=== PATIENT | female | born 1935 | race Caucasian/White ===

== ENCOUNTER 2018-11-13 07:10 | Inpatient (IN) ==
--- NOTE | 2018-11-13 07:18 | Emergency Department Note ---
Disposition Clinical Impression: Right sided weakness Disposition: Admitted As Inpatient Condition: Good Referrals: Reggie Alanis DO [Primary Care Provider] - Time of Disposition: 09:01 Neuro HPI - General Chief Complaint: ED Neuro Symptoms/Deficit Stated Complaint: stroke Time Seen by Provider: 11/13/18 07:11 Source: patient, family, EMS Mode of arrival: EMS Limitations: no limitations Nursing Notes Reviewed: Yes Vital Signs Reviewed: Yes - History of Present Illness HPI Narrative: Patient is an 83-year-old female who is presenting with acute neurological symptoms. Patient with known history of hypertension hyperlipidemia. She also has history of past SVT. Patient is currently on metoprolol. Per daughter who was in the room, patient called her at 625 this morning, while on the phone, patient then became dizzy and noted that she was having difficulty holding the phone her right hand and also thought as though her lites leg was weak. She did not note any slurring of speech at that time. Last known well was 625. When the daughter arrived at 6:30 at the patient's house, she quickly performed a fast examination, which showed no neurological deficit. Patient was able to raise both of her arms equally and symmetrically without note of facial droop or slurring of speech. Patient was not confused at that time. Dizziness had resolved. EMS was called. Upon EMS arrival, there is no neurological deficit seen. When patient arrived to the ER, she stated once again she was having right-sided weakness in the upper extremity as well as the right leg. She had no slurring of speech, she did not feel confused and there is no facial a symmetry. Patient currently takes 81 mg of aspirin. She denies history of CVA or similar symptoms in the past. Per her daughter she has been under a great deal of stress. No recent falls or trauma. She does have some nausea, without vomiting no fevers or chills. No vision changes. No abdominal pain, chest pain or shortness of breath. Per EMS glucose of arrival was 111. Glucose performed in the ER on arrival was 80. - Related Data Home Medications: Home Medications Medication Instructions Recorded Confirmed Aspirin [Lo-Dose Aspirin EC] 81 mg PO 11/13/18 Atorvastatin [Lipitor] 20 mg PO HS 11/13/18 11/13/18 Ca/D3/Mag Ox/Zinc/Deck Supervisor/Ramon/Bor 1 each PO DAILY 11/13/18 11/13/18 [Calcium 600+D3 Plus Caplet] Cholecalciferol (Vitamin D3) 400 unit PO DAILY 11/13/18 11/13/18 [Vitamin D] Flaxseed Oil/[place] 3,6,9 [Sv 1 each PO DAILY 11/13/18 11/13/18 Flaxseed Oil 1,300 mg Sftgl] Ibuprofen [Advil] 200 mg PO Q6H PRN 11/13/18 11/13/18 Loratadine [Claritin] 10 mg PO DAILY PRN 11/13/18 11/13/18 Metoprolol [Lopressor] 12.5 mg PO QAM 11/13/18 11/13/18 Metoprolol [Lopressor] 25 mg PO HS 11/13/18 11/13/18 Allergies/Adverse Reactions: Allergies Allergy/AdvReac Type Severity Reaction Status Date / Time No Known Allergies Allergy Verified 11/13/18 07:19 All systems ED: reviewed and negative except as stated. Review of Systems: As Per HPI Constitutional: Denies: fever, chills ENT ED: Denies: congestion Cardiovascular: Denies: chest pain, palpitations, syncope Respiratory: Denies: cough, dyspnea, wheezes, sputum production Gastrointestinal: Reports: nausea. Denies: abdominal pain, vomiting, diarrhea, hematemesis, melena, hematochezia Genitourinary: Denies: urgency, dysuria, frequency Musculoskeletal: Denies: back pain Integumentary: Denies: rash Neurological: Reports: weakness. Denies: headache, numbness, paresthesias, confusion Endocrine: Denies: fatigue Past Medical History - Past Medical History Attestation: Yes The following information was validated with the patient. Source: patient Physical Exam - General Limitations: no limitations General appearance: alert, in no apparent distress - Head Head exam: atraumatic, normocephalic, normal inspection - Eye Eye exam: Present: normal appearance, PERRL, EOMI - ENT ENT exam: normal exam, normal oropharynx, mucous membranes moist - Neck Neck exam: Present: normal inspection, full ROM, trachea midline - Chest Chest inspection: Present: normal inspection, symmetric chest wall rise - Cardiovascular Cardiovascular exam: Present: regular rate, normal rhythm, normal heart sounds - Abdominal Exam Abdominal exam: Present: soft, Non-Tender. Absent: tenderness, distention, guarding, rebound, rigidity - Extremities Exam Extremities exam: Present: normal inspection, full ROM. Absent: tenderness, pedal edema - Neurological Exam Neurological exam: Present: alert, oriented X3 - Expanded Neurological Exam Patient oriented to: Present: person, place, time Speech: Present: fluid speech Cranial nerves: EOM function (II, III, IV, ): Normal, facial sensation (V): Normal, facial palsy (VII): Normal, spinal accessory function (XI): Normal, tongue deviation (XII): Normal Cerebellar function: finger to nose: Normal Cerebellar function: Romberg normal Motor strength - LUE: 5/5 Motor strength - RUE: 5/5 Motor strength - LLE: 5/5 Motor strength - RLE: 5/5 Upper motor neuron exam: michele neglect: Absent bilaterally, pronator drift: Absent bilaterally Sensory exam upper extremity: light touch: Normal Sensory exam lower extremity: light touch: Normal Coma Scale Eye Opening: Spontaneous Coma Scale Motor Response: Obeys Commands Coma Scale Verbal Response: Oriented Coma Scale Total: 15 - Psychiatric Psychiatric exam: Present: normal affect, normal mood - Skin Skin exam: Present: warm, dry, intact, normal color Course Vital Signs Temperature 98.4 F 11/13/18 07:19 Pulse Rate 61 11/13/18 07:19 Respiratory Rate 16 11/13/18 07:19 Blood Pressure 218/84 11/13/18 07:19 O2 Sat by Pulse Oximetry 99 11/13/18 07:19 Temperature 98.4 F 11/13/18 07:19 Pulse Rate 58 11/13/18 09:05 Respiratory Rate 15 11/13/18 09:05 Blood Pressure 138/67 11/13/18 09:05 O2 Sat by Pulse Oximetry 98 11/13/18 09:05 Oxygen Delivery Oxygen Delivery Room Air Neuro Symptoms/Deficit - MDM Narrative Medical decision making narrative: Patient is an 83-year-old female brought in via EMS for acute neurological changes. Patient with known history of hyperlipidemia, hypertension and SVT in the past. Per EMS, less than well was 0625. There was note of acute right- sided weakness to the arm and leg at 0625 with difficulty holding up the phone and walking. EMSs NIH was 0 upon their arrival. Patient is alert and oriented 3 on her arrival to the ER, my attending got an NIH of 2 with right arm and right leg weakness. Stroke alert was called at 0707. The patient arrived back to the ER following CT scan at 0725, I reevaluated patient and she now has an NIH of 0. Patient currently states she feels back to baseline. I was called by [facility] at 7:[address] Polo stating that the CT of the head shows no acute infarct. [facility], was at bedside via telemedicine at 735, per his recommendation no TPA at this point. He does recommend to transfer to [facility] for observation as symptoms are waxing and waning, feels though it would be more appropriate to be admitted to [facility] as if symptoms become constant, she is at the location for thrombectomy. He also states that the patient does not want to go to [facility], the patient is also appropriate to stay here at [place] for observation overnight and if symptoms worsen or change, she may be transferred to [facility] at any time. CTA of the head and neck was performed which shows no acute intracranial or vascular abnormality. While here in the ER, patient has remained without significant worsening of symptoms. They have completely resolved at this point. Patient states she feels back to baseline. She has been given aspirin as well as started on a D5 normal saline maintenance drip as she is currently glucose of 76. On arrival, patient was hypertensive with a blood pressure of 216 systolic, initially was going to give labetalol 20 mg IV, however when the patient returned from CT her blood pressure was in the 170 systolic and heart rate was 58, we will hold off at this time. Patient's blood pressure has continued to trend down and she has remained stable, as patient is not a TPA candidate, we will hold off on the pressure management. I did have further discussion with the patient, CTA is negative, she would prefer to stay here in [place] for continuation and evaluation for admission. I did discuss with her that anytime if her symptoms were to change or worsen she is able to be transferred to [facility]. She will be admitted at this time. Hospitalist has been paged at [phone]. - Medical Records Medical records reviewed: Yes I reviewed the patient's medical records. - Lab Data Lab results reviewed: Yes I reviewed the patient's lab results. Result diagrams: 11/13/18 07:13 11/13/18 07:13 Lab Results 11/13/18 11/13/18 11/13/18 Range/Units 07:13 07:13 07:13 WBC 7.5 (4.3-11.1) K/mcL RBC 4.59 (3.82-4.97) M/mcL Hgb 13.0 (11.5-15.4) g/dL Hct 41.5 (35.3-44.9) % MCV 90.4 (83.0-100.0) fL MCH 28.3 (28.0-33.3) pg MCHC 31.3 L (31.6-35.5) g/dL RDW 13.7 (11.5-14.5) % Plt Count 209 (140-400) K/mcL MPV 10.9 (9.4-12.4) fL PT 11.1 (9.4-12.1) Seconds INR 1.0 APTT 29.7 (26.0-36.0) Seconds Sodium 145 (136-145) mEq/L Potassium 4.0 (3.5-5.1) mEq/L Chloride 108 H (98-107) mEq/L Carbon Dioxide 28 (23-29) mEq/L BUN 18 (8-23) mg/dL Creatinine 0.75 (0.60-1.20) mg/dL Est GFR ( Amer) > 60 (> 60) Est GFR (Non-Af Amer) > 60 (> 60) BUN/Creatinine Ratio 24 (6-26) Glucose 76 (70-105) mg/dL Calculated Osmolality 301 H (280-300) Calcium 9.2 (8.6-10.3) mg/dL Troponin I < 0.03 (< 0.04) ng/mL Urine Color (Yellow) Urine Clarity (Clear) Urine pH (5.0-8.0) pH Units Ur Specific [place] (1.010-1.025) Urine Protein (Neg-Trace) mg/dL Urine Glucose (UA) (Normal) mg/dL Urine Ketones (Negative) mg/dL Urine Blood (Negative) Urine Nitrite (Negative) Urine Bilirubin (Negative) Urine Urobilinogen (Normal) mg/dL Ur Leukocyte Esterase (Negative) Urine Microscopic RBC (0-3) per hpf Urine Microscopic WBC (0-3) per hpf Ur Squamous Epith Cells (None-Few) per lpf Urine Bacteria (None-Few) per hpf Hyaline Casts (None-Few) per lpf Ur Culture Indicated? (NO) 11/13/18 Range/Units 08:07 WBC (4.3-11.1) K/mcL RBC (3.82-4.97) M/mcL Hgb (11.5-15.4) g/dL Hct (35.3-44.9) % MCV (83.0-100.0) fL MCH (28.0-33.3) pg MCHC (31.6-35.5) g/dL RDW (11.5-14.5) % Plt Count (140-400) K/mcL MPV (9.4-12.4) fL PT (9.4-12.1) Seconds INR APTT (26.0-36.0) Seconds Sodium (136-145) mEq/L Potassium (3.5-5.1) mEq/L Chloride (98-107) mEq/L Carbon Dioxide (23-29) mEq/L BUN (8-23) mg/dL Creatinine (0.60-1.20) mg/dL Est GFR ( Amer) (> 60) Est GFR (Non-Af Amer) (> 60) BUN/Creatinine Ratio (6-26) Glucose (70-105) mg/dL Calculated Osmolality (280-300) Calcium (8.6-10.3) mg/dL Troponin I (< 0.04) ng/mL Urine Color Yellow (Yellow) Urine Clarity Clear (Clear) Urine pH 7.0 (5.0-8.0) pH Units Ur Specific [place] < 1.005 L (1.010-1.025) Urine Protein Negative (Neg-Trace) mg/dL Urine Glucose (UA) Normal (Normal) mg/dL Urine Ketones Negative (Negative) mg/dL Urine Blood Negative (Negative) Urine Nitrite Negative (Negative) Urine Bilirubin Negative (Negative) Urine Urobilinogen Normal (Normal) mg/dL Ur Leukocyte Esterase Trace H (Negative) Urine Microscopic RBC 0-3 (0-3) per hpf Urine Microscopic WBC 0-3 (0-3) per hpf Ur Squamous Epith Cells None Seen (None-Few) per lpf Urine Bacteria None Seen (None-Few) per hpf Hyaline Casts None Seen (None-Few) per lpf Ur Culture Indicated? YES A (NO) - Radiology Data Radiology results reviewed: Yes I reviewed the patient's radiology results. Head CT 11/13/18 07:11 IMPRESSION: No acute intracranial abnormality. D/ / 11/13/2018 07:34:16 Garrett Polo MD / jamila Interpreting Provider: Garrett Polo MD - EKG Data EKG attestation: Yes I reviewed and interpreted this EKG. EKG results narrative: EKG obtained at 725 with ventricular rate of 61, regular rhythm, borderline left axis deviation, no ST segment elevation, depression or T-wave changes. overall normal sinus rhythm EKG. When compared to old EKG performed here 07/04/2008, appears relatively unchanged. NIH Stroke Scale - Level of Consciousness LOC: Alert - LOC Questions LOC Questions: Answers both correctly - LOC Commands LOC Commands: Performs both correctly - Best Gaze Best Gaze: Normal - Visual Visual: No visual loss - Facial Palsy Facial Palsy: Normal - Motor Arms Motor Arm-Left: No drift for 10 seconds Motor Arm-Right: No drift for 10 seconds - Motor Legs Motor Leg-Left: No drift for 5 seconds Motor Leg-Right: No drift for 5 seconds - Limb Ataxia Limb Ataxia: Absent of affected limb too weak to perform exam - Sensory Sensory: Normal - Best Language Best Language: No aphasia - Dysarthria Dysarthria: Normal - Extinction and Inattention Extinction and Inattention: Normal (performed post Ct scan at 725) - NIHSS Total Score NIHSS Total Score: 0 TPA Checklist - LKW: 3-4.5 hrs Add. Warnings/Precautions Patient/family understanding: The patient/family members have been counseled and understood the risk, benefit, and alternatives of treatment. Attestation Statement - Attestation Attestation: I, Dieter Ochoa DO, examined this patient [id number] and my medical decision-making was reviewed with Dr. Mavis Nevarez , Resident Physician. I agree with the documented findings, disposition and treatment plan as described except to the extent set forth below. I personally supervised and was present for the gaytan/critical portions of the procedures completed by the resident documented below. Please see my progress notes for details.
[2018-11-13] MEDS ORDERED: *HR* Labetalol 20 MG/4 ML SYRINGE IVP ONE (07:20)
[2018-11-13] MEDS ORDERED: D5% in 0.9% NACL 1,000 ML IVC SCH (07:30)
[2018-11-13 07:36] LABS: Hematocrit 41.5 % (35.3-44.9); Mean Corpuscular HGB Conc 31.3 g/dL (31.6-35.5); Mean Corpuscular Hemoglobin 28.3 pg (28.0-33.3); Mean Corpuscular Volume 90.4 fL (83.0-100.0); Mean Platelet Volume 10.9 fL (9.4-12.4); Platelet Count 209 K/mcL (140-400); Red Blood Count 4.59 M/mcL (3.82-4.97); Red Cell Distribution Width 13.7 % (11.5-14.5); White Blood Count 7.5 K/mcL (4.3-11.1)
[2018-11-13 07:40] LABS: Prothrombin Time 11.1 Seconds (9.4-12.1)
[2018-11-13 07:43] LABS: Activated Partial Thrombo Time 29.7 Seconds (26.0-36.0)
--- NOTE | 2018-11-13 07:43 | Emergency Department Note ---
Disposition Clinical Impression: Right sided weakness Disposition: Admitted As Inpatient Condition: Fair Forms: ED Satisfaction Letter Time of Disposition: 09:21 General Adult HPI - General Chief complaint: ED Neuro Symptoms/Deficit Stated complaint: stroke Time Seen by Provider: 11/13/18 07:11 Source: patient, family, EMS Mode of arrival: EMS Limitations: no limitations - History of Present Illness Pain Scale: 0 - Related Data Home Medications Medication Instructions Recorded Confirmed Aspirin [Lo-Dose Aspirin EC] 81 mg PO DAILY 11/13/18 11/13/18 Atorvastatin [Lipitor] 20 mg PO HS 11/13/18 11/13/18 Ca/D3/Mag Ox/Zinc/Director Of Testing/Ramon/Bor 1 each PO DAILY 11/13/18 11/13/18 [Calcium 600+D3 Plus Caplet] Cholecalciferol (Vitamin D3) 400 unit PO DAILY 11/13/18 11/13/18 [Vitamin D] Flaxseed Oil/[place] 3,6,9 [Sv 1 each PO DAILY 11/13/18 11/13/18 Flaxseed Oil 1,300 mg Sftgl] Ibuprofen [Advil] 200 mg PO Q6H PRN 11/13/18 11/13/18 Loratadine [Claritin] 10 mg PO DAILY PRN 11/13/18 11/13/18 Metoprolol [Lopressor] 12.5 mg PO QAM 11/13/18 11/13/18 Metoprolol [Lopressor] 25 mg PO HS 11/13/18 11/13/18 Allergies Allergy/AdvReac Type Severity Reaction Status Date / Time No Known Allergies Allergy Verified 11/13/18 07:19 Past Medical History - Past Medical History Medical history: Reports: hyperlipidemia, SVT Psychiatric history: Reports: no psych history - Social History Smoking Status: Never smoker Alcohol use: Reports: none Drug use: Reports: none Physical Exam - General Limitations: no limitations General appearance: alert Course Vital Signs Temperature 98.4 F 11/13/18 07:19 Pulse Rate 61 11/13/18 07:19 Respiratory Rate 16 11/13/18 07:19 Blood Pressure 218/84 11/13/18 07:19 O2 Sat by Pulse Oximetry 99 11/13/18 07:19 Temperature 98.4 F 11/13/18 07:19 Pulse Rate 58 11/13/18 09:05 Respiratory Rate 15 11/13/18 09:05 Blood Pressure 138/67 11/13/18 09:05 O2 Sat by Pulse Oximetry 98 11/13/18 09:05 Oxygen Delivery Oxygen Delivery Room Air Medical Decision Making - Lab Data Result diagrams: 11/13/18 07:13 11/13/18 07:13 Lab Results 11/13/18 11/13/18 11/13/18 Range/Units 07:13 07:13 07:13 WBC 7.5 (4.3-11.1) K/mcL RBC 4.59 (3.82-4.97) M/mcL Hgb 13.0 (11.5-15.4) g/dL Hct 41.5 (35.3-44.9) % MCV 90.4 (83.0-100.0) fL MCH 28.3 (28.0-33.3) pg MCHC 31.3 L (31.6-35.5) g/dL RDW 13.7 (11.5-14.5) % Plt Count 209 (140-400) K/mcL MPV 10.9 (9.4-12.4) fL PT 11.1 (9.4-12.1) Seconds INR 1.0 APTT 29.7 (26.0-36.0) Seconds Sodium 145 (136-145) mEq/L Potassium 4.0 (3.5-5.1) mEq/L Chloride 108 H (98-107) mEq/L Carbon Dioxide 28 (23-29) mEq/L BUN 18 (8-23) mg/dL Creatinine 0.75 (0.60-1.20) mg/dL Est GFR ( Amer) > 60 (> 60) Est GFR (Non-Af Amer) > 60 (> 60) BUN/Creatinine Ratio 24 (6-26) Glucose 76 (70-105) mg/dL Calculated Osmolality 301 H (280-300) Calcium 9.2 (8.6-10.3) mg/dL Troponin I < 0.03 (< 0.04) ng/mL Urine Color (Yellow) Urine Clarity (Clear) Urine pH (5.0-8.0) pH Units Ur Specific [place] (1.010-1.025) Urine Protein (Neg-Trace) mg/dL Urine Glucose (UA) (Normal) mg/dL Urine Ketones (Negative) mg/dL Urine Blood (Negative) Urine Nitrite (Negative) Urine Bilirubin (Negative) Urine Urobilinogen (Normal) mg/dL Ur Leukocyte Esterase (Negative) Urine Microscopic RBC (0-3) per hpf Urine Microscopic WBC (0-3) per hpf Ur Squamous Epith Cells (None-Few) per lpf Urine Bacteria (None-Few) per hpf Hyaline Casts (None-Few) per lpf Ur Culture Indicated? (NO) 11/13/18 Range/Units 08:07 WBC (4.3-11.1) K/mcL RBC (3.82-4.97) M/mcL Hgb (11.5-15.4) g/dL Hct (35.3-44.9) % MCV (83.0-100.0) fL MCH (28.0-33.3) pg MCHC (31.6-35.5) g/dL RDW (11.5-14.5) % Plt Count (140-400) K/mcL MPV (9.4-12.4) fL PT (9.4-12.1) Seconds INR APTT (26.0-36.0) Seconds Sodium (136-145) mEq/L Potassium (3.5-5.1) mEq/L Chloride (98-107) mEq/L Carbon Dioxide (23-29) mEq/L BUN (8-23) mg/dL Creatinine (0.60-1.20) mg/dL Est GFR ( Amer) (> 60) Est GFR (Non-Af Amer) (> 60) BUN/Creatinine Ratio (6-26) Glucose (70-105) mg/dL Calculated Osmolality (280-300) Calcium (8.6-10.3) mg/dL Troponin I (< 0.04) ng/mL Urine Color Yellow (Yellow) Urine Clarity Clear (Clear) Urine pH 7.0 (5.0-8.0) pH Units Ur Specific [place] < 1.005 L (1.010-1.025) Urine Protein Negative (Neg-Trace) mg/dL Urine Glucose (UA) Normal (Normal) mg/dL Urine Ketones Negative (Negative) mg/dL Urine Blood Negative (Negative) Urine Nitrite Negative (Negative) Urine Bilirubin Negative (Negative) Urine Urobilinogen Normal (Normal) mg/dL Ur Leukocyte Esterase Trace H (Negative) Urine Microscopic RBC 0-3 (0-3) per hpf Urine Microscopic WBC 0-3 (0-3) per hpf Ur Squamous Epith Cells None Seen (None-Few) per lpf Urine Bacteria None Seen (None-Few) per hpf Hyaline Casts None Seen (None-Few) per lpf Ur Culture Indicated? YES A (NO) Critical Care Time Critical Care Time: Yes (60) Total Critical Care Time: 60 Attestation: Critical care performed: Time is exclusive of separately billable procedures. Time includes: direct patient care, patient reassessment, coordination of patient care, interpretation of data (laboratory data, radiology data, and respiratory data), review of patient's medical records, medical consultation and documentation of patient care. Procedures included in critical care time: Procedures excluded from critical care time: Attestation Statement - Attestation Attestation: I, Dieter Ochoa DO, examined this patient [id number] and my medical decision-making was reviewed with Dr. Mavis Nevarez , Resident Physician. I agree with the documented findings, disposition and treatment plan as described except to the extent set forth below. I personally supervised and was present for the gaytan/critical portions of the procedures completed by the resident documented below. Please see my progress notes for details. 83-year-old female presents emergency room for evaluation of difficulty with speech confusion and right-sided weakness. The daughter was talking to her on the phone this morning at 0625 hours. Acutely at that time she noticed that the mother was having difficulty with speech and she immediately went over to the house and called the squad during her drive. The patient was found to be acting appropriately on arrival there would had some right-sided weakness greater than the daughter. By the time the squad arrived the symptoms had resolved. Patient is transferred out to the emergency room with a negative evaluation and Accu-Chek 111. Her vital signs are stable. On arrival here the patient had reemergence of right-sided weakness and difficulty with ambulation issues going from the cot to the bed. Stroke alert was immediately called on her arrival at 0710 hours. Patient had difficulty with lifting the right arm up against gravity. Aside from that the patient clear lungs and stable vital signs. Her blood pressure was elevated so appropriate intervention has been ordered at this time. Immediate CT scan of the head was ordered. Disposition to be completed. Head is otherwise atraumatic. No visible signs of facial asymmetry. No extra ocular muscle entrapment noted on initial presentation. She speaking in full sentences. Daughter is at the bedside and does agree that she is acting appropriately but the weakness in the right upper and right lower extremity were physically visible on initial presentation. Disposition pending full workup and evaluation. See detailed documentation the physical exam, medical intervention, medical decision-making and disposition in the resident physician's note. EKG is reviewed by myself and documented in the resident physician's note. Proximal 60 minutes of critical care pad the patient's treatment course at this time 0735 The neurologist from [facility] Dr. Willingham evaluated the patient the bedside. CT imaging of the head was negative. The recommendation at that time is that she could have a waxing and waning stroke. CT angiography of the head and the neck ordered immediately at that point. They recommended transfer to their facility for further evaluation of the patient will accommodate. They also felt that the patient could be managed our facility if they were not requesting to be transferred. Disposition pending the CT angiography as well as family comfort. The remainder the labs of been reviewed and otherwise stable. It was canceled at this time 0900 CT angiography of the head and neck are unremarkable for acute vascular related significant lesions. No visible signs of thrombus at this time. Patient has been provided with an aspirin. Discussion was had with the patient about transfer versus admission here for symptomatic management. Patient and family are both comfortable being admitted at our facility. The hospitalist Dr. cooley has reviewed the case at length and is evaluating the patient the bedside here in the emergency department. No other recommendations or concerns are noted this point. I went back and reevaluated the patient and she has remained 100% asymptomatic at this time and her blood pressure is back down to normal range. The daughter and family are both there and they are comfortable this time.
[2018-11-13] MEDS ORDERED: Ondansetron 4 MG/2 ML VIAL IVP ONE (07:45)
[2018-11-13 07:50] LABS: BUN/Creatinine Ratio 24 (6-26); Blood Urea Nitrogen 18 mg/dL (8-23); Calcium 9.2 mg/dL (8.6-10.3); Carbon Dioxide 28 mEq/L (23-29); Chloride 108 mEq/L (98-107); Glucose 76 mg/dL (70-105); Osmolality,Calculated 301 (280-300); Sodium 145 mEq/L (136-145); eGFR For African Americans > 60 (> 60); eGFR For Non-African Americans > 60 (> 60)
[2018-11-13 07:51] LABS: Troponin I < 0.03 ng/mL (< 0.04)
[2018-11-13] MEDS ORDERED: Isovue-370 500 ML BOTTLE IVP ONE (07:54)
[2018-11-13] MEDS ORDERED: Aspirin 81 MG TAB.CHEW PO ONE (08:01)
[2018-11-13 08:25] LABS: Bilirubin,Urine Negative (Negative); Blood,Urine Negative (Negative); Clarity,Urine Clear (Clear); Color,Urine Yellow (Yellow); Glucose,Urine (UA) Normal (Normal); Ketones,Urine Negative (Negative); Leukocyte Esterase,Urine Trace (Negative); Nitrite,Urine Negative (Negative); Protein,Urine Negative (Neg-Trace); Specific Gravity,Urine < 1.005 (1.010-1.025); Urobilinogen,Urine Normal (Normal)
[2018-11-13 08:28] LABS: Bacteria,Urine None Seen per hpf (None-Few); Hyaline Casts,Urine None Seen per lpf (None-Few); RBC,Urine 0-3 per hpf (0-3); Squamous Epithelial Cell,Urine None Seen per lpf (None-Few); WBC,Urine 0-3 per hpf (0-3)
--- NOTE | 2018-11-13 09:43 | Internal Med History&Physical ---
Date of Encounter: 11/13/18 Time of Encounter: 09:34 Internal Medicine - H&P: HPI Chief complaint: stroke symptoms Admitted From: Emergency Dept Plans for Post Hospital Care: Home History of present illness: Ms. Haque is a 83 year old female with PMHx of HLD, osteoporosis, paroxysmal SVT. patient states she woke up this morning around 0625 with right arm and right leg weakness. she called her daughter, who arrived to the house shortly afterwards. By the time her daughter arrived to the house, her symptoms had resolved. She arrived to the ED at 7:07 and was evaluated by ED physician. At that hermes, she was unable to lift her right arm again. SHe had CT head and CTA head that was negative. Stroke alert was called in ED and patient was evaluated by [facility] neurologist via telemedicine. She was deemed to not be a TPA candidate. It could have a form of stroke with waxing and waning symptoms, and patient was recommended to go to [facility] in case she needed localized thrombolytics. However, patient decided she would rather stay here in [place]. she accepts the risks/benefits of staying here. she denies nausea, vomiting, diarrhea, fevers, chills, chest pain, shortness of breath, hematochezia, melena, hematuria. she denies slurred speech or facial drooping. Past Med Surg Social Fam HX - Past Medical History Medical history: hyperlipidemia, SVT Psychiatric history: no psych history - Social History Smoking Status: Never smoker Alcohol use: none Drug use: none Internal Medicine - H&P: Meds Aspirin [Lo-Dose Aspirin EC] 81 mg PO DAILY 11/13/18 [History] Atorvastatin [Lipitor] 20 mg PO HS 11/13/18 [History] Ca/D3/Mag Ox/Zinc/Software Licensing Specialist/Ramon/Bor [Calcium 600+D3 Plus Caplet] 1 each PO DAILY 11/13/18 [History] Cholecalciferol (Vitamin D3) [Vitamin D] 400 unit PO DAILY 11/13/18 [History] Flaxseed Oil/[place] 3,6,9 [Sv Flaxseed Oil 1,300 mg Sftgl] 1 each PO DAILY 11/13/18 [History] Ibuprofen [Advil] 200 mg PO Q6H PRN 11/13/18 [History] Loratadine [Claritin] 10 mg PO DAILY PRN 11/13/18 [History] Metoprolol [Lopressor] 12.5 mg PO QAM 11/13/18 [History] Metoprolol [Lopressor] 25 mg PO HS 11/13/18 [History] Allergy/AdvReac Type Severity Reaction Status Date / Time No Known Allergies Allergy Verified 11/13/18 07:19 All Systems PM: A 10-system review of systems was performed and is negative for pertinent findings except as documented above in the HPI. - Constitutional Constitutional: as per HPI - EENT Eyes: as per HPI Ears: as per HPI Nose, mouth and throat: as per HPI - Breasts Breasts: as per HPI - Cardiovascular Cardiovascular ROS IM: as per HPI - Respiratory Respiratory: as per HPI - Gastrointestinal Gastrointestinal: as per HPI - Genitourinary Genitourinary: as per HPI Menstruation: as per HPI - Musculoskeletal Musculoskeletal ROS IM: as per HPI - Integumentary Integumentary IM: as per HPI - Neurological Neurological ROS: as per HPI - Psychiatric Psychiatric: as per HPI - Endocrine Endocrine IM: as per HPI - Hematologic/Lymphatic Hematologic/Lymphatic: as per HPI - Allergic/Immunologic Allergic/Immunologic: as per HPI - Constitutional Vitals: Temp Pulse Resp BP Pulse Ox 98.4 F 58 15 138/67 98 11/13/18 07:19 11/13/18 09:05 11/13/18 09:05 11/13/18 09:05 11/13/18 09:05 General appearance: Present: A&O X 3, pleasant, no acute distress, answers questions appropriately Exam: alert and oriented x3, pleasant, no acute distress - Head Head exam: Present: atraumatic, normocephalic - ENT ENT exam: Present: mucous membranes moist - Neck Neck exam general surgery: Present: supple, trachea midline - Respiratory Respiratory exam: Present: CTAB. Absent: rhonchi, wheezes - Cardiovascular Cardiovascular exam: Present: RRR, +S1, +S2. Absent: systolic murmur - GI/Abdominal GI/Abdominal exam: Present: normal bowel sounds, soft. Absent: distended, tenderness - Extremities Exam Extremities exam: Present: normal inspection. Absent: cyanotic, tenderness - Neurological Exam Neurological exam: Present: alert, CN II-XII intact, oriented X3, no focal deficits, strengths equal and symetr throughout. Absent: motor sensory deficit, pronater drift, facial droop, speech deficit - Psychiatric Psychiatric exam: Present: normal affect, normal mood - Skin Skin exam: Present: dry, intact. Absent: cyanosis, diaphoretic, rash, urticaria, vesicles Internal Med - H&P Results - Labs CBC & Chem 7: 11/13/18 07:13 11/13/18 07:13 Labs: Short CBC 11/13/18 Range/Units 07:13 WBC 7.5 (4.3-11.1) K/mcL Hgb 13.0 (11.5-15.4) g/dL Hct 41.5 (35.3-44.9) % Plt Count 209 (140-400) K/mcL BMP 11/13/18 07:13 Sodium 145 Potassium 4.0 Chloride 108 H Carbon Dioxide 28 BUN 18 Creatinine 0.75 Glucose 76 Calcium 9.2 Cardiac Enzymes 11/13/18 Range/Units 07:13 Troponin I < 0.03 (< 0.04) ng/mL Urine 11/13/18 Range/Units 08:07 Urine Color Yellow (Yellow) Urine Clarity Clear (Clear) Urine pH 7.0 (5.0-8.0) pH Units Ur Specific [place] < 1.005 L (1.010-1.025) Urine Protein Negative (Neg-Trace) mg/dL Urine Glucose (UA) Normal (Normal) mg/dL - Impressions ITS Impressions Head CT 11/13/18 07:11 IMPRESSION: No acute intracranial abnormality. D/ / 11/13/2018 07:34:16 Garrett Polo MD / jamila Interpreting Provider: Garrett Polo MD Chest X-Ray 11/13/18 07:12 IMPRESSION: No evidence of acute cardiopulmonary disease. D/ / Salty Rodriguez MD / Salty Rodriguez MD Interpreting Provider: Salty Rodriguez MD Head CTA 11/13/18 07:54 IMPRESSION: 1. No major branch occlusion, significant stenosis or cerebral aneurysm identified. 2. No significant arterial stenosis identified within the neck. D/ / 11/13/2018 08:51:16 Josué Lawrence MD / Maria Del Carmen Okeefe Interpreting Provider: Josué Lawrence MD Neck CTA 11/13/18 07:54 IMPRESSION: 1. No major branch occlusion, significant stenosis or cerebral aneurysm identified. 2. No significant arterial stenosis identified within the neck. D/ / 11/13/2018 08:51:16 Josué Lawrence MD / Maria Del Carmen [place] Interpreting Provider: Josué Lawrence MD - Assessment and Plan (1) TIA (transient ischemic attack) Current Visit: Yes Status: Acute Assessment and plan: patient woke up this morning with right sided weakness that was waxing and waning. was evaluated by [facility] neurologist, who recommended transfer to [facility] for possible localized thrombolysis if needed. However, patient refused transfer and preferred to stay in [place]. She accepts risks of staying here and understands that this facility does not do any type of invasive procedure for stroke. head CT unremarkable. head CTA unremarkable neck CTA unremarkable. Plan: order MRI check lipid panel in am continue ASA, atorvastatin check echocardiogram bedside swallow eval. if ok, start diet. telemetry (2) Hyperlipidemia Current Visit: Yes Status: Acute Assessment and plan: continue atorvastatin Qualifiers: Hyperlipidemia type: unspecified Qualified Code(s): E78.5 - Hyperlipidemia, unspecified (3) Paroxysmal SVT (supraventricular tachycardia) Current Visit: Yes Status: Acute Assessment and plan: remote history of paroxysmal SVT in the past continue beta fortunato continue telemetry (4) DVT prophylaxis Current Visit: Yes Status: Acute Assessment and plan: heparin SQ - Time Spent With Patient Total time spent is greater than 50% in coordination of care (as documented) at patient's floor/unit and/or counseling patient:
[2018-11-13] MEDS ORDERED: Acetaminophen 325 MG TABLET PO PRN (09:45)
[2018-11-13] MEDS ORDERED: Loratadine 10 MG TABLET PO PRN (09:50)
--- NOTE | 2018-11-13 10:01 | Electrocardiograph Report ---
[place] [id number] Test Date: 2018-11-13 Pat Name: Neeta Haque Department: [id number] Room: [place] [address] Gender: F Deep Fat Cook Fry: : 1935 Requested By: Dieter Ochoa Order Number: [id number] Reading MD: Jimi Gonzalez Measurements Intervals [place] Rate: 61 P: 70 CT: 181 QRS: -25 QRSD: 114 T: 59 QT: 425 QTc: 429 Interpretive Statements Sinus rhythm Atrial premature complex RSR' in V1 or V2, right VCD or RVH Electronically Signed On 11-13-2018 10:00:33 EDT by Jimi Gonzalez
--- NOTE | 2018-11-13 13:23 | Event Note ---
Date of Encounter: 11/13/18 Time of Encounter: 13:23 MRI , Punctate acute infarct noted along the lateral aspect of the left postcentral gyrus, near the expected location of face on the sensory strip. Also it was reported that the patient has experienced sudden onset weakness of the right leg around noon, and now is resolved, I discussed the finding and the MRI with the patient and I offered her to be transferred to [facility] as per NEUROLOGY team recommendation at [facility], however she declined. I contacted neurology at [facility] for further evaluation and management.
--- NOTE | 2018-11-13 13:24 | Neurology - Consult Note ---
<Mike Moreira J - Last Filed: 11/13/18 13:43> Date of Encounter: 11/13/18 Time of Encounter: 13:23 Assessment and Plan (1) Acute CVA (cerebrovascular accident) Current Visit: Yes Status: Acute Acute CVA; small vessel event most likely secondary to hypertensive emergency Presented with abrupt onset of dizziness and right-sided weakness; all symptoms have since resolved LKW 0630. Outside of TPA window. 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 Recommend allowing permissive hypertension today with goal SBP less than 170s and began to normalize tomorrow C/W daily ASA and Statin Discussed strict medication compliance as well as HTN management. Discussed aggressive risk factor management. C/W neurological exams per protocol Lipid panel and HGB A1c pending History of Present Illness Chief complaint: Acute CVA HPI: Ms. Haque is a 83 year old female with a PMH of HLD, paroxysmal SVT, HTN. She presents to [facility] with a chief complaint of right-sided weakness. Her last known well was approximately 6:30 this morning. She reports that around this time she was in the kitchen preparing her 's breakfast and morning medications that she began to feel extremely dizzy. She notes that she sat down to rest for a moment of the dizziness persisted so she decided to call her daughter. 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 This is what prompted her to seek evaluation in the ED. Upon arrival to the emergency department a stroke alert was called and she was deemed not to be a candidate for TPA due to being outside of the window. However, given the waxing and waning symptoms patient was recommended to go to [facility] in case she needed from the lytics however, she declined and wished to remain at [facility] accepting the risks and benefits of transfer. At the time of my assessment this afternoon she is no longer having right-sided weakness and there are no obvious neurological deficits found on examination. However, the MRI of the brain did reveal an acute punctate infarcts noted along the lateral aspect of the left postcentral gyrus. There is also mild chronic macrovascular white matter ischemic disease noted both supra and infratentorial he with associated cerebral parenchymal volume loss. Vital signs were reviewed and she was found to have hypertensive emergency on admission with a BP of 218/84. Her blood pressures have improved since admission and are now 142/60. Past Med Surg Social Fam HX - Past Medical History Medical history: hyperlipidemia, SVT Psychiatric history: no psych history - Social History Smoking Status: Never smoker Alcohol use: none Drug use: none - Family History Mother Living Status: Hx Family Cancer: Yes Father Living Status: Hx Family Cardiac Disorders: Yes Brother Living Status: Hx Family Cardiac Disorders: Yes Medications and Allergies Aspirin [Lo-Dose Aspirin EC] 81 mg PO DAILY 11/13/18 [History] Atorvastatin [Lipitor] 20 mg PO HS 11/13/18 [History] Ca/D3/Mag Ox/Zinc/Director [employer]/Ramon/Bor [Calcium 600+D3 Plus Caplet] 1 each PO DAILY 11/13/18 [History] Cholecalciferol (Vitamin D3) [Vitamin D] 400 unit PO DAILY 11/13/18 [History] Flaxseed Oil/[place] 3,6,9 [Sv Flaxseed Oil 1,300 mg Sftgl] 1 each PO DAILY 11/13/18 [History] Ibuprofen [Advil] 200 mg PO Q6H PRN 11/13/18 [History] Loratadine [Claritin] 10 mg PO DAILY PRN 11/13/18 [History] Metoprolol [Lopressor] 12.5 mg PO QAM 11/13/18 [History] Metoprolol [Lopressor] 25 mg PO HS 11/13/18 [History] Allergy/AdvReac Type Severity Reaction Status Date / Time No Known Allergies Allergy Verified 11/13/18 07:19 All Systems: The remainder of the systems were reviewed and are negative Review of Systems: REVIEW OF SYSTEMS GENERAL: NEUROLOGIC: Negative for any visual disturbances, facial asymmetry, dysphagia, dysarthria, hemiparesis, hemisensory deficits, vertigo, ataxia, seizures, paralysis, tingling, numbness Positive - dizziness and right arm and leg weakness CARDIAC: Negative for any chest pain, dyspnea, peripheral edema or palpitations Positive for severe hypertension on admission MUSCULOSKELETAL: Positive - loss of strength right arm and leg Physical Examination - Vital Signs Vital Signs: Initial Vital Signs Temp Pulse Resp BP Pulse Ox 98.4 F 61 16 218/84 99 11/13/18 07:19 11/13/18 07:19 11/13/18 07:19 11/13/18 07:19 11/13/18 07:19 - Exam Exam: Examination: General Examination: *CONSTITUTIONAL: Alert and oriented x3, no acute distress *GENERAL APPEARANCE OF PATIENT appears healthy for age and well groomed *EYES: pupils equal, round, reactive to light and accommodation, conjunctiva clear *CARDIOVASCULAR no peripheral edema, distal temperature normal, dorsalis pedis pulses normal. See vitals Musculoskeletal: *GAIT AND STATION normal, with normal Romberg testing, no abnormalities such as broad base gait or spasticity *ASSESSMENT OF MUSCLE STRENGTH IN THE UPPER AND LOWER EXTREMITIES bilateral deltoid, bicep, tricep, farmworker pullet farm strength, hip flexors ,anterior tibialis, dorsoflexion of the foot 5/5 *MUSCLE TONE IN THE UPPER AND LOWER EXTREMITIES normal. No abnormal movements, fasciculations or atrophy identified. Neurological: *ORIENTATION to person, situation, time and place *RECURRENT AND REMOTE MEMORY intact *ATTENTION AND CONCENTRATION are normal *LANGUAGE FUNCTION no significant aphasia or dysarthia was noted. *FUND OF KNOWLEDGE aware of current events, past history, vocabulary *MENTAL attention span and concentration normal. *CN II optic fundi were normal, no papilledema noted. *CN III,IV, PERRLA extraocular eye movements were full, no nystagmus and no ptosis noted. *CN V shows normal sensation and jaw opens symmetrically. *CN VII shows normal facial movement symmetrically, upper and lower bilaterally. *CN VIII shows no significant hearing loss on exam *CN IX,,X palate elevated symmetrically *CN XI normal strength in the sternocleidomastoid muscles, symmetrical shoulder shrugging. *CN XII tongue protruded in the midline, with normal strength and movement. *SENSORY EXAMINATION light touch intact *REFLEXES: deep tendon reflexes were normal and symmetrical , grade 1/4 diffusely, no pathological reflexes were noted. *CEREBELLAR TESTING normal finger to nose, heel/knee/burt *PAIN LEVEL 0/10 Results - Laboratory Findings CBC and BMP: 11/13/18 07:13 11/13/18 07:13 Abnormal lab findings: Abnormal lab results MCHC 31.3 g/dL (31.6-35.5) L 11/13/18 07:13 Chloride 108 mEq/L (98-107) H 11/13/18 07:13 301 (280-300) H 11/13/18 07:13 Ur Specific [place] < 1.005 (1.010-1.025) L 11/13/18 08:07 Ur Leukocyte Esterase Trace (Negative) H 11/13/18 08:07 Ur Culture Indicated? YES (NO) A 11/13/18 08:07 - Diagnostic Findings Additional findings: CT/CT stroke alert head wo con IMPRESSION: No acute intracranial abnormality. CT/CT angio head IMPRESSION: 1. No major branch occlusion, significant stenosis or cerebral aneurysm identified. 2. No significant arterial stenosis identified within the neck. MR/MR head/brain wo con IMPRESSION: 1. Punctate acute infarct noted along the lateral aspect of the left postcentral gyrus, near the expected location of face on the sensory strip. 2. Mild chronic microvascular white matter ischemic disease noted both supra and infratentorially with associated cerebral parenchymal volume loss. Consult Discharge Plan - Plan Referrals: Reggie Alanis DO [Primary Care Provider] - <Axel Green - Last Filed: 11/13/18 17:51> Date of Encounter: 11/13/18 Assessment and Plan (1) Acute CVA (cerebrovascular accident) Current Visit: Yes Status: Acute I have personally performed a [id number] assessment of the patient and have reviewed the PA/APPEALS BOARD REFEREE note. My impressions are as follows:I agree with the assessment and plan as documented above by the GEOPHYSICAL PROSPECTOR. Patient was already on aspirin therefore we should discontinue aspirin and moving on to Plavix 75 mg daily. I will reevaluate her tomorrow. History of Present Illness HPI: The chart was reviewed, the patient was seen and examined independently. I a gree with the documentation of the history of present illness as above. Patient's deficits have now completely resolved. All Systems: The remainder of the systems were reviewed and are negative Review of Systems: The balance of the systems review is negative. Physical Examination - Vital Signs Vital Signs: Initial Vital Signs Temp Pulse Resp BP Pulse Ox 98.4 F 61 16 218/84 99 11/13/18 07:19 11/13/18 07:19 11/13/18 07:19 11/13/18 07:19 11/13/18 07:19 - Exam Exam: I have personally performed a [id number] assessment of the patient and have reviewed the PA/APPEALS BOARD REFEREE note. My impressions are as follows: I agree with the documentation of the neurologic examination as above. Results - Laboratory Findings CBC and BMP: 11/13/18 07:13 11/13/18 07:13 Abnormal lab findings: Abnormal lab results MCHC 31.3 g/dL (31.6-35.5) L 11/13/18 07:13 Chloride 108 mEq/L (98-107) H 11/13/18 07:13 301 (280-300) H 11/13/18 07:13 Ur Specific [place] < 1.005 (1.010-1.025) L 11/13/18 08:07 Ur Leukocyte Esterase Trace (Negative) H 11/13/18 08:07 Ur Culture Indicated? YES (NO) A 11/13/18 08:07
[2018-11-13] MEDS: *HR* Heparin 5,000 UNIT/ML VIAL SQ SCH (16:20)
[2018-11-14] MEDS: *HR* Heparin 5,000 UNIT/ML VIAL SQ SCH (05:24)
[2018-11-14 05:29] LABS: Prothrombin Time 11.9 Seconds (9.4-12.1)
[2018-11-14 05:34] LABS: Chol/HDL Ratio 2.5 (0-4.9)
--- NOTE | 2018-11-14 08:01 | Discharge Summary ---
- NOTES TO OUTPATIENT PROVIDER Notes to Outpatient Provider: Pt had CVA, symptoms resolved. Please f/u HTN Date of Encounter: 11/14/18 Time of Encounter: 07:58 Hospital course: Dear Doctors, I recently had the opportunity to care for this patient during their recent hospital stay at [facility]. Neeta Haque is a pleasant 83 F w hx HTN, HLD, paroxysmal SVT, who presented at time of admission with transient dizziness and R sided weakness. In the ED, head CT unremarkable. Stroke alert called and pt not TPA candidate due to time period of symptoms. Admitted for further eval. In the hospital, Neurology consulted. MRI revealed small infarct in left postcentral gyrus. TTE and CTA head/neck unremarkable. Blood pressure is better today. All of her symptoms improved spontaneously. Plavix started in place of ASA, and lipitor increased to 80. She will follow outpatient w her PCP. Dx: acute CVA Pertinent tests/consults: Neurology consultation, MRI showing punctate acute infarct lateral left postcentral gyrus near expected facial sensory strip Follow up: PCP 1 week Tests pending: none Med changes: - increase Lipitor from 20 to 80 - stop ASA 81 - start Plavix 75 daily Mental status: awake, fully oriented Code status: Elementary Educator spent on discharge: 25 minutes It has been my pleasure participating in this patient's care. Please contact me with any questions or concerns regarding their hospital stay. Sincerely, Kevin Young MD - Discharge Medications Prescriptions: New Atorvastatin Calcium 80 mg PO DAILY #30 tablet Clopidogrel [Plavix] 75 mg PO DAILY #30 tablet Continued Metoprolol [Lopressor] 12.5 mg PO QAM Metoprolol [Lopressor] 25 mg PO HS Loratadine [Claritin] 10 mg PO DAILY PRN PRN Reason: Congestion Ibuprofen [Advil] 200 mg PO Q6H PRN PRN Reason: Pain Ca/D3/Mag Ox/Zinc/Bundle Tier And Labeler/Ramon/Bor [Calcium 600-D3 Plus Caplet] 1 each PO DAILY Discontinued Atorvastatin [Lipitor] 20 mg PO HS Flaxseed Oil/[place] 3,6,9 [Sv Flaxseed Oil 1,300 mg Sftgl] 1 each PO DAILY Cholecalciferol (Vitamin D3) [Vitamin D] 400 unit PO DAILY Aspirin [Lo-Dose Aspirin EC] 81 mg PO DAILY Home Medications: Ca/D3/Mag Ox/Zinc/Bundle Tier And Labeler/Ramon/Bor [Calcium 600-D3 Plus Caplet] 1 each PO DAILY 11/13/18 [History] Ibuprofen [Advil] 200 mg PO Q6H PRN 11/13/18 [History] Loratadine [Claritin] 10 mg PO DAILY PRN 11/13/18 [History] Metoprolol [Lopressor] 12.5 mg PO QAM 11/13/18 [History] Metoprolol [Lopressor] 25 mg PO HS 11/13/18 [History] Atorvastatin Calcium 80 mg PO DAILY #30 tablet 11/14/18 [Rx] Clopidogrel [Plavix] 75 mg PO DAILY #30 tablet 11/14/18 [Rx] Allergies/Adverse Reactions: Allergy/AdvReac Type Severity Reaction Status Date / Time No Known Allergies Allergy Verified 11/13/18 07:19 Date of admission: 11/13/18 13:33 Primary care physician: Reggie Alanis DO - Constitutional Vitals: Temp Pulse Resp BP Pulse Ox 98.1 F 53 16 155/68 98 11/14/18 07:11 11/14/18 07:11 11/14/18 07:11 11/14/18 07:11 11/14/18 07:11 Exam: General: NAD, good eye contact, well appearing, elderly Thoracic: Normal breath sounds b/l, no wheezing or crackles Cardio: Normal S1 and S2, regular rate and rhythm, no murmurs Abdomen: Soft, nontender Extremities: Warm, well perfused. DP pulses 2+ b/l. No edema. Skin: Intact. No rashes, bruises, or ulcers Neuro: Awake, fully oriented. Speech fluent. Good memory, concentration, and attention. CN II-XII grossly intact. Strength 5/5 in b/l upper and lower ext. - Patient Status Disposition: Home, Self-Care Condition: Fair Functional capacity at discharge: independent ambulation Overall status at discharge: patient is back to baseline - Discharge Instructions Follow Up With: Reggie Alanis DO [Primary Care Provider] - - Diet and Activity Activity: resume usual activities as tolerated Diet: low salt diet
[2018-11-14] MEDS ORDERED: Aspirin Enteric Coated 81 MG Tablet PO SCH (09:00)
[2018-11-14 09:23] LABS: Estimated Average Glucose 137 mg/dl
[2018-11-14 10:39] VITALS: BP 119/51
--- NOTE | 2018-11-14 10:57 | Neurology Progress Note ---
Date of Encounter: 11/14/18 Time of Encounter: 10:54 Assessment and Plan (1) Acute CVA (cerebrovascular accident) Current Visit: Yes Status: Acute Patient is now stable. She has experienced a small infarct in the left postcentral gyrus. Her neurologic examination however is normal now. Her risk factors include age, hyperlipidemia and hypertension. Upon arrival her blood pressure was 214/84. Perhaps this may have caused of vasospasm in the region of the infarct. However I do not feel that she needs any type of PT, OT or speech therapy after discharge. I would simply recommend aggressive management of her stroke risk factors, periodic evaluations with her primary care provider for ongoing blood pressure monitoring. I would recommend starting her on Plavix and discontinuing the aspirin from a neurologic perspective. Otherwise he may dis charge her at your discretion. I will reevaluate her at your request. Subjective Interval history: The chart was reviewed, the patient was seen and examined. Patient is in no acute distress. She had an uneventful night. She denies any complaint of numbness, paresthesia, weakness, headache, visual change since our last assessment. Neurologic workup has been completed and reveals a small infarct in the region of the left postcentral gyrus. Echocardiogram was negative for PFO or any other embolic source. CTA studies of the head and neck were both n egative. Blood pressure is normalized today. Objective - Constitutional Vitals: Temp Pulse Resp BP Pulse Ox 98.5 F 58 16 119/51 95 11/14/18 10:36 11/14/18 10:36 11/14/18 10:36 11/14/18 10:36 11/14/18 10:36 Exam: Exam: Examination: General Examination: *CONSTITUTIONAL: Alert and oriented x3, no acute distress *GENERAL APPEARANCE OF PATIENT appears healthy for age and well groomed *EYES: pupils equal, round, reactive to light and accommodation, co njunctiva clear *CARDIOVASCULAR no peripheral edema, distal temperature normal, dorsalis pedis pulses normal. See vitals Musculoskeletal: *GAIT AND STATION normal, with normal Romberg testing, no abnormalities such as broad base gait or spasticity *ASSESSMENT OF MUSCLE STRENGTH IN THE UPPER AND LOWER EXTREMITIES bilateral deltoid, bicep, tricep, search engine optimization specialist strength, hip flexors ,anterior tibialis, dorsoflexion of the foot 5/5 *MUSCLE TONE IN THE UPPER AND LOWER EXTREMITIES normal. No abnormal movements, fasciculations or atrophy identified. Neurological: *ORIENTATION to person, situation, time and place *RECURRENT AND REMOTE MEMORY intact *ATTENTION AND CONCENTRATION are normal *LANGUAGE FUNCTION no significant aphasia or dysarthia was noted. *FUND OF KNOWLEDGE aware of current events, past history, vocabulary *MENTAL attention span and concentration normal. *CN II optic fundi were normal, no papilledema noted. *CN III,IV, PERRLA extraocular eye movements were full, no nystagmus and no ptosis noted. *CN V shows normal sensation and jaw opens symmetrically. *CN VII shows normal facial movement symmetrically, upper and lower bilaterally. *CN VIII shows no significant hearing loss on exam *CN IX,,X palate elevated symmetrically *CN XI normal strength in the sternocleidomastoid muscles, symmetrical shoulder shrugging. *CN XII tongue protruded in the midline, with normal strength and movement. *SENSORY EXAMINATION light touch intact *REFLEXES: deep tendon reflexes were normal and symmetrical , grade 1/4 diffusely, no pathological reflexes were noted. *CEREBELLAR TESTING normal finger to nose, heel/knee/burt *PAIN LEVEL 0/10 Results - Laboratory Findings CBC and BMP: 11/13/18 07:13 11/13/18 07:13 Abnormal lab findings: Abnormal lab results MCHC 31.3 g/dL (31.6-35.5) L 11/13/18 07:13 Chloride 108 mEq/L (98-107) H 11/13/18 07:13 6.4 % (-5.6) H 11/14/18 05:00 301 (280-300) H 11/13/18 07:13 Ur Specific Brothers < 1.005 (1.010-1.025) L 11/13/18 08:07 Ur Leukocyte Esterase Trace (Negative) H 11/13/18 08:07 Ur Culture Indicated? YES (NO) A 11/13/18 08:07 Consult Discharge Plan - Plan Referrals: Reggie Alanis DO [Primary Care Provider] - Prescriptions: Atorvastatin Calcium 80 mg PO DAILY #30 tablet
== END 2018-11-14 14:13 | disposition home or self-care (01) | DRG 65 ==
LOC: CDU 07:10 → EMEROOARM 07:10 → CDU 09:41 → SUATTDRO 13:33 → 2NENU 16:47
PROVIDERS: ADMIT Internal Medicine Nephrology; ATTEND Internal Medicine

== ENCOUNTER 2020-10-12 11:36 | Inpatient (IN) ==
[2020-10-12 12:48] LABS: Basophils % 0.3 %; Eosinophils % 0.2 %; Hemoglobin 11.4 g/dL (11.5-15.4); Immature Granulocytes % 0.6 % (0-4); Lymphocytes # 1.2 K/mcL (0.6-4.6); Lymphocytes % 10.1 %; Mean Corpuscular HGB Conc 31.7 g/dL (31.6-35.5); Mean Corpuscular Hemoglobin 27.1 pg (28.0-33.3); Mean Corpuscular Volume 85.7 fL (83.0-100.0); Monocytes % 8.8 %; Neutrophils # 9.4 K/mcL (1.6-8.9); Platelet Count 305 K/mcL (140-400); Red Cell Distribution Width 15.7 % (11.5-14.5); White Blood Count 11.8 K/mcL (4.3-11.1)
[2020-10-12 13:14] LABS: Alanine Aminotransferase 205 Units/L (7-52); Albumin 3.5 g/dL (3.5-5.7); Albumin/Globulin Ratio 0.9 (1.1-2.2); Alkaline Phosphatase > 1500 Units/L (34-104); Aspartate Amino Transferase 269 Units/L (13-39); BUN/Creatinine Ratio 19 (6-26); Bilirubin,Direct 3.5 mg/dL (0.0-0.2); Bilirubin,Indirect 2.1 mg/dL (0.0-1.0); Bilirubin,Total 5.6 mg/dL (0.3-1.0); Blood Urea Nitrogen 14 mg/dL (8-23); Calcium 8.8 mg/dL (8.6-10.3); Carbon Dioxide 23 mEq/L (23-29); Chloride 101 mEq/L (98-107); Globulin 3.8 g/dL (2.4-3.5); Glucose 106 mg/dL (70-105); Lipase 55 Units/L (11-82); Osmolality,Calculated 283 (280-300); Potassium 3.8 mEq/L (3.5-5.1); Sodium 136 mEq/L (136-145); Total Protein 7.3 g/dL (6.4-8.9); Troponin I 0.05 ng/mL (< 0.04); eGFR For African Americans > 60 (> 60); eGFR For Non-African Americans > 60 (> 60)
[2020-10-12] MEDS ORDERED: Ondansetron 4 MG/2 ML VIAL IVP PRN (13:48)
[2020-10-12] MEDS ORDERED: Naloxone 0.4 MG/ML INJ IVP PRN (13:48)
[2020-10-12] MEDS ORDERED: Melatonin 3 MG TABLET PO PRN (13:48)
[2020-10-12] MEDS ORDERED: *HR* OxyCODONE/APAP 5/325 TABLET PO PRN (14:19)
[2020-10-12 15:49] LABS: INR 1.6; Prothrombin Time 18.1 Seconds (9.4-12.1)
[2020-10-12] MEDS: Ampicillin/Sulbactam 1,500 MG in 0.9 % Sodium Chloride Mini Bag 100 ML IVPB SCH (20:38)
[2020-10-12] MEDS: *HR* Heparin 5,000 UNIT/ML VIAL SQ SCH (20:38)
[2020-10-13] MEDS: Ampicillin/Sulbactam 1,500 MG in 0.9 % Sodium Chloride Mini Bag 100 ML IVPB SCH ×4 (00:34→17:46)
[2020-10-13] MEDS: *HR* Heparin 5,000 UNIT/ML VIAL SQ SCH ×2 (05:50→17:44)
[2020-10-13 08:27] LABS: Basophils % 0.4 %; Eosinophils % 0.2 %; Hematocrit 31.8 % (35.3-44.9); Immature Granulocytes % 0.4 % (0-4); Lymphocytes # 0.9 K/mcL (0.6-4.6); Lymphocytes % 11.1 %; Mean Corpuscular HGB Conc 31.4 g/dL (31.6-35.5); Mean Corpuscular Hemoglobin 27.2 pg (28.0-33.3); Mean Corpuscular Volume 86.4 fL (83.0-100.0); Monocytes # 0.7 K/mcL (0.0-1.3); Neutrophils # 6.7 K/mcL (1.6-8.9); Platelet Count 281 K/mcL (140-400); Red Blood Count 3.68 M/mcL (3.82-4.97); Red Cell Distribution Width 15.8 % (11.5-14.5); Segmented Neutrophils % 79.9 %; White Blood Count 8.4 K/mcL (4.3-11.1)
[2020-10-13 08:42] LABS: Albumin 3.1 g/dL (3.5-5.7); Bilirubin,Direct 2.9 mg/dL (0.0-0.2); Bilirubin,Indirect 1.4 mg/dL (0.0-1.0); Bilirubin,Total 4.3 mg/dL (0.3-1.0); Globulin 3.1 g/dL (2.4-3.5); Total Protein 6.2 g/dL (6.4-8.9)
[2020-10-13 08:43] LABS: BUN/Creatinine Ratio 23 (6-26); Blood Urea Nitrogen 13 mg/dL (8-23); Calcium 8.2 mg/dL (8.6-10.3); Carbon Dioxide 20 mEq/L (23-29); Chloride 104 mEq/L (98-107); Glucose 56 mg/dL (70-105); Magnesium 2.3 mg/dL (1.6-2.6); Osmolality,Calculated 284 (280-300); Phosphorous 2.6 mg/dL (2.7-4.5); Potassium 3.9 mEq/L (3.5-5.1); Sodium 138 mEq/L (136-145); eGFR For African Americans > 60 (> 60); eGFR For Non-African Americans > 60 (> 60)
[2020-10-13] MEDS ORDERED: *HR* Dextrose 50 % in Water (Vial) 50 ML VIAL IVP PRN (12:25)
[2020-10-13] MEDS ORDERED: D5% in Water 1,000 ML IVC PRN (12:25)
[2020-10-13] MEDS ORDERED: Dextrose Gel 15 GM/37.5 ML TUBE PO PRN ×2 (12:25)
[2020-10-13] MEDS ORDERED: *HR* OxyCODONE Immed Rel 5 MG TABLET PO PRN (14:04)
[2020-10-13] MEDS ORDERED: *HR* FentaNYL (PF) 100 MCG/2 ML VIAL IVP PRN (14:04)
[2020-10-13] MEDS ORDERED: *HR* Metoprolol 5 MG/5 ML VIAL IVP PRN (14:04)
[2020-10-13] MEDS ORDERED: Ondansetron 4 MG/2 ML VIAL IVP PRN (14:04)
[2020-10-13] MEDS ORDERED: *HR* Propofol 200 MG/20 ML VIAL IVP ONE (14:12)
[2020-10-13] MEDS ORDERED: Lidocaine -MPF 2% 5 ML VIAL ONE (14:13)
[2020-10-13] MEDS ORDERED: Lidocaine -MPF 4% 5 ML AMPUL ONE (14:13)
[2020-10-13] MEDS ORDERED: *HR* Succinylcholine 200 MG/10 ML VIAL IVP ONE (14:13)
[2020-10-13] MEDS ORDERED: *HR* Rocuronium Bromide 50 MG/5 ML VIAL ONE (14:13)
[2020-10-13] MEDS ORDERED: Indomethacin 50 MG SUPP.RECT RC ONE (14:20)
[2020-10-13] MEDS ORDERED: Gadolinium Contrast Agent (WT Based) IV PRN (15:09)
[2020-10-14] MEDS: Ampicillin/Sulbactam 1,500 MG in 0.9 % Sodium Chloride Mini Bag 100 ML IVPB SCH ×4 (00:42→18:11)
[2020-10-14] MEDS: *HR* Heparin 5,000 UNIT/ML VIAL SQ SCH ×2 (05:25→18:18)
[2020-10-14 08:51] LABS: Basophils % 0.1 %; Hematocrit 32.6 % (35.3-44.9); Hemoglobin 10.7 g/dL (11.5-15.4); Immature Granulocytes % 0.5 % (0-4); Lymphocytes # 1.1 K/mcL (0.6-4.6); Lymphocytes % 11.1 %; Mean Corpuscular HGB Conc 32.8 g/dL (31.6-35.5); Mean Corpuscular Volume 85.3 fL (83.0-100.0); Mean Platelet Volume 10.7 fL (9.4-12.4); Monocytes # 0.6 K/mcL (0.0-1.3); Monocytes % 6.7 %; Neutrophils # 7.8 K/mcL (1.6-8.9); Platelet Count 326 K/mcL (140-400); Red Blood Count 3.82 M/mcL (3.82-4.97); Red Cell Distribution Width 15.9 % (11.5-14.5); Segmented Neutrophils % 81.6 %; White Blood Count 9.6 K/mcL (4.3-11.1)
[2020-10-14 09:05] LABS: INR 1.6; Prothrombin Time 17.8 Seconds (9.4-12.1)
[2020-10-14 09:10] LABS: Alanine Aminotransferase 131 Units/L (7-52); Albumin 3.1 g/dL (3.5-5.7); Albumin/Globulin Ratio 0.9 (1.1-2.2); Alkaline Phosphatase 1335 Units/L (34-104); Aspartate Amino Transferase 135 Units/L (13-39); BUN/Creatinine Ratio 40 (6-26); Bilirubin,Total 2.8 mg/dL (0.3-1.0); Blood Urea Nitrogen 25 mg/dL (8-23); Calcium 8.5 mg/dL (8.6-10.3); Carbon Dioxide 22 mEq/L (23-29); Chloride 106 mEq/L (98-107); Globulin 3.5 g/dL (2.4-3.5); Glucose 118 mg/dL (70-105); Osmolality,Calculated 297 (280-300); Potassium 4.5 mEq/L (3.5-5.1); Sodium 141 mEq/L (136-145); Total Protein 6.6 g/dL (6.4-8.9); eGFR For African Americans > 60 (> 60); eGFR For Non-African Americans > 60 (> 60)
[2020-10-14 15:06] LABS: INR 1.6; Prothrombin Time 18.4 Seconds (9.4-12.1)
[2020-10-15] MEDS: Ampicillin/Sulbactam 1,500 MG in 0.9 % Sodium Chloride Mini Bag 100 ML IVPB SCH ×4 (01:24→17:43)
[2020-10-15 06:19] LABS: Basophils % 0.1 %; Eosinophils % 0.3 %; Hematocrit 29.9 % (35.3-44.9); Hemoglobin 9.5 g/dL (11.5-15.4); Immature Granulocytes % 0.2 % (0-4); Lymphocytes # 1.4 K/mcL (0.6-4.6); Lymphocytes % 15.7 %; Mean Corpuscular HGB Conc 31.8 g/dL (31.6-35.5); Mean Corpuscular Hemoglobin 27.4 pg (28.0-33.3); Mean Corpuscular Volume 86.2 fL (83.0-100.0); Mean Platelet Volume 10.8 fL (9.4-12.4); Monocytes # 0.7 K/mcL (0.0-1.3); Monocytes % 7.8 %; Neutrophils # 6.7 K/mcL (1.6-8.9); Platelet Count 284 K/mcL (140-400); Red Blood Count 3.47 M/mcL (3.82-4.97); Red Cell Distribution Width 15.8 % (11.5-14.5); Segmented Neutrophils % 75.9 %; White Blood Count 8.9 K/mcL (4.3-11.1)
[2020-10-15] MEDS: *HR* Heparin 5,000 UNIT/ML VIAL SQ SCH ×2 (06:20→17:44)
[2020-10-15 06:35] LABS: Alanine Aminotransferase 99 Units/L (7-52); Albumin 2.9 g/dL (3.5-5.7); Alkaline Phosphatase 1105 Units/L (34-104); Aspartate Amino Transferase 95 Units/L (13-39); BUN/Creatinine Ratio 49 (6-26); Blood Urea Nitrogen 30 mg/dL (8-23); Carbon Dioxide 27 mEq/L (23-29); Chloride 108 mEq/L (98-107); Globulin 2.8 g/dL (2.4-3.5); Glucose 139 mg/dL (70-105); Osmolality,Calculated 300 (280-300); Potassium 4.6 mEq/L (3.5-5.1); Sodium 141 mEq/L (136-145); Total Protein 5.7 g/dL (6.4-8.9); eGFR For African Americans > 60 (> 60); eGFR For Non-African Americans > 60 (> 60)
[2020-10-16] MEDS: Ampicillin/Sulbactam 1,500 MG in 0.9 % Sodium Chloride Mini Bag 100 ML IVPB SCH ×3 (00:09→12:38)
[2020-10-16] MEDS: *HR* Heparin 5,000 UNIT/ML VIAL SQ SCH ×2 (04:58→17:21)
[2020-10-16 05:01] LABS: INR 1.2; Prothrombin Time 13.8 Seconds (9.4-12.1)
[2020-10-16 05:16] LABS: Alanine Aminotransferase 92 Units/L (7-52); Alkaline Phosphatase 1033 Units/L (34-104); Aspartate Amino Transferase 83 Units/L (13-39); BUN/Creatinine Ratio 31 (6-26); Bilirubin,Total 1.8 mg/dL (0.3-1.0); Blood Urea Nitrogen 20 mg/dL (8-23); Calcium 8.4 mg/dL (8.6-10.3); Carbon Dioxide 26 mEq/L (23-29); Chloride 107 mEq/L (98-107); Glucose 119 mg/dL (70-105); Osmolality,Calculated 292 (280-300); Potassium 4.2 mEq/L (3.5-5.1); Sodium 139 mEq/L (136-145); eGFR For African Americans > 60 (> 60); eGFR For Non-African Americans > 60 (> 60)
[2020-10-17 05:42] VITALS: BP 117/65
[2020-10-17] MEDS: *HR* Heparin 5,000 UNIT/ML VIAL SQ SCH (05:47)
[2020-10-17 06:37] LABS: Alanine Aminotransferase 92 Units/L (7-52); Albumin 3.1 g/dL (3.5-5.7); Albumin/Globulin Ratio 1.1 (1.1-2.2); Alkaline Phosphatase 926 Units/L (34-104); Aspartate Amino Transferase 77 Units/L (13-39); BUN/Creatinine Ratio 38 (6-26); Bilirubin,Total 1.7 mg/dL (0.3-1.0); Blood Urea Nitrogen 20 mg/dL (8-23); Calcium 8.8 mg/dL (8.6-10.3); Carbon Dioxide 26 mEq/L (23-29); Chloride 104 mEq/L (98-107); Globulin 2.9 g/dL (2.4-3.5); Glucose 110 mg/dL (70-105); Osmolality,Calculated 289 (280-300); Potassium 3.9 mEq/L (3.5-5.1); Sodium 138 mEq/L (136-145); eGFR For African Americans > 60 (> 60); eGFR For Non-African Americans > 60 (> 60)
[2020-10-17 08:44] LABS: Adenovirus Not Detected (Not Detect); Bordetella Pertussis Not Detected (Not Detect); Chlamydophila pneumoniae Not Detected (Not Detect); Coronavirus 229E Not Detected (Not Detect); Coronavirus HKU1 Not Detected (Not Detect); Coronavirus NL63 Not Detected (Not Detect); Coronavirus OC43 Not Detected (Not Detect); Human Metapneumovirus Not Detected (Not Detect); Human Rhinovirus/Enterovirus Not Detected (Not Detect); Influenza A Subtype 2009 H1 Not Detected (Not Detect); Influenza B Not Detected (Not Detect); Mycoplasma pneumoniae Not Detected (Not Detect); Parainfluenza Virus 1 Not Detected (Not Detect); Parainfluenza Virus 2 Not Detected (Not Detect); Parainfluenza Virus 3 Not Detected (Not Detect); Parainfluenza Virus 4 Not Detected (Not Detect); Respiratory Syncytial Virus Not Detected (Not Detect); SARS-CoV-2 Not Detected (Not Detect)
== END 2020-10-17 09:45 | disposition other institution (70) | DRG 435 ==
LOC: EMEROOARM 11:36 → 3ANU 11:36 → SUATTDRO 18:39 → 3ANU 19:14 → 3BNU 10-14 01:23
PROVIDERS: ADMIT Internal Medicine; ATTEND Family Medicine